=== PATIENT | female | born 1995 | race African-American/Black ===

== ENCOUNTER 2017-02-24 03:46 | Inpatient (IN) | payer OTHER ==
[~2017-02-24] VITALS: Ht 157.5 cm; Wt 78.9 kg
--- NOTE | 2017-02-24 03:49 | NUR ---
BIBA TO ER BED 6
--- NOTE | 2017-02-24 03:50 | NUR ---
21Y F BIBA C/O N/V/D X 3 DAYS. SKIN IS PINK/WARM/DRY; AAOX4; LUNGS CLEAR BL; HR EVEN AND REGULAR; PT DENIES ANY FEVER, CP, SOB, OR COUGH AT THIS TIME; PATIENT STATES PAIN OF 8/10 AT THIS TIME; VSS; PATIENT POSITIONED FOR COMFORT; HOB ELEVATED; BEDRAILS UP X2; BED DOWN. ER MD MADE AWARE OF PT STATUS.IV WAS ESTABLISHED ON THE FIELD BY EMS 20 LEFT HAND. PT DENIES ANY MEDICAL HX AND NKA
[2017-02-24 03:55] VITALS: BP 112/67
[2017-02-24] MEDS ORDERED: ONDANSETRON 4 MG/2 ML VIAL ONE (04:01)
[2017-02-24] MEDS ORDERED: KETOROLAC 30 MG/ML VIAL ONE (04:02)
[2017-02-24] MEDS ORDERED: AMOX500C25 PO (04:05)
--- NOTE | 2017-02-24 04:05 | NUR ---
IVF/IVP MEDS GIVEN-NADR AT THIS TIME.
[2017-02-24] MEDS ORDERED: NACL 0.9% 1,000 ML IV ONE ×2 (05:40→05:50)
[2017-02-24] MEDS ORDERED: ONDANSETRON 4 MG/2 ML VIAL IVP ONE ×2 (05:40→05:50)
[2017-02-24] MEDS ORDERED: KETOROLAC 30 MG/ML VIAL IVP ONE (05:40)
[2017-02-24] MEDS ORDERED: MORPHINE SULFATE 4 MG/ML SYR IVP ONE ×2 (05:50→07:35)
--- NOTE | 2017-02-24 06:20 | NUR ---
FIRST IV D/C WHILE PT WAS AT CT
[2017-02-24 06:43] LABS: BASOPHILS # (AUTO) 0.1 K/uL (0.00-0.22); BASOPHILS % (AUTO) 0.3 % (0.0-2.0); EOSINOPHILS # (AUTO) 0.4 K/uL (0-0.4); HEMATOCRIT 38.1 % (36-48); HEMOGLOBIN 12.1 g/dL (12.0-16.0); LYMPHOCYTES # (AUTO) 0.5 K/uL (2.5-16.5); LYMPHOCYTES % (AUTO) 2.8 % (20.5-51.1); MEAN CORPUSCULAR HEMOGLOBIN 23 pg (27-31); MEAN CORPUSCULAR HGB CONC 32 g/dL (33-37); MEAN CORPUSCULAR VOLUME 71 fL (80-94); MONOCYTES # (AUTO) 0.5 K/uL (0.8-1.0); MONOCYTES % (AUTO) 2.7 % (1.7-9.3); NEUTROPHILS # (AUTO) 17.4 K/uL (1.8-7.7); NEUTROPHILS % (AUTO) 92.2 % (42.2-75.2); PLATELET COUNT (AUTO) 179 K/uL (140-450); RED BLOOD CELL COUNT(AUTO) 5.39 MIL/uL (4.20-5.40); RED CELL DISTRIBUTION WIDTH 16.8 % (11.6-13.7); WHITE BLOOD COUNT (AUTO) 18.9 K/uL (4.8-10.8)
[2017-02-24 06:52] LABS: ANION GAP 20.9 (8-16); CALCIUM 8.7 mg/dL (8.5-10.1); CARBON DIOXIDE 19.2 mmol/L (21-32); POTASSIUM 3.1 mmol/L (3.5-5.1)
[2017-02-24 06:57] LABS: ALBUMIN 3.5 g/dL (3.4-5.0); TOTAL BILIRUBIN 0.7 mg/dL (0.0-1.0); TOTAL PROTEIN, SERUM 7.8 g/dL (6.4-8.2)
--- NOTE | 2017-02-24 07:15 | NUR ---
Pt report given to BERNADETTE . Transfer of care at this time.
--- NOTE | 2017-02-24 07:22 | NUR ---
Patient found lying in bed on right side, calm and relaxed, no signs of distress. VSS. Pt expresses feeling better than when she came in. Patient c/o 4/10 abdominal pain. Pt is requesting more pain medication at this time. Dr. Davis made aware. All other needs met.
[2017-02-24] MEDS ORDERED: ONDANSETRON 4 MG/2 ML VIAL IVP PRN (07:30)
[2017-02-24] MEDS ORDERED: MORPHINE SULFATE 4 MG/ML SYR IVP PRN (07:30)
[2017-02-24] MEDS ORDERED: ACETAMINOPHEN 325 MG TAB PO PRN (07:30)
[2017-02-24] MEDS ORDERED: MORPHINE SULFATE 2 MG/ML SYR IVP PRN (07:30)
--- NOTE | 2017-02-24 08:30 | NUR ---
Patient will be admitted to care of Dr. Mcgregor. Admited to Med/Surg. Will go to room 125-B. Belongings list completed. Report to Dahlia TURNER.
--- NOTE | 2017-02-24 08:40 | NUR ---
PT ARRIVED ON UNIT WITH 1 ER NURSE IN A WHEELCHAIR. PT AMBULATED TO THE BATHROOM AND TO THE BED. PT IS ALERT AND ORIENTED. I INTRODUCED MYSELF AND UPDATED THE BOARD. ORIENTED PT TO THE CALL LIGHT. PT C/O NAUSEA. NO VOMITING SINCE SHE'S BEEN IN THE ER. C/O OF ABDOMINAL DISCOMFORT. V/S WITHIN NORMAL LIMITS. MRSA SCREENING DONE. PT ASKED FOR SOME ICE CHIPS. BROUGHT HER A CUP OF ICE. WILL CHECK ORDERS. WILL CONTINUE TO MONITOR PT.
[2017-02-24 09:00] VITALS: BP 111/71
[2017-02-24] MEDS: NACL 0.9% 1,000 ML IV SCH ×3 (09:44→20:35)
[2017-02-24] MEDS: ENOXAPARIN 40 MG/0.4 ML SYR SUBQ SCH (09:46)
--- NOTE | 2017-02-24 09:50 | NUR ---
ADMINISTERED MORNING MEDS. ADMINISTERED ROCEPHIN AND HUNG A NEW BAG OF SALINE. PT TOLERATED WELL.
--- NOTE | 2017-02-24 10:30 | NUR ---
PT SLEEPING. NO SIGNS OF DISTRESS. WILL CONTINUE TO MONITOR PT.
--- NOTE | 2017-02-24 12:23 | NUR ---
PT JUST GOT UP AND WENT TO THE BATHROOM. FORGOT TO GIVE ME A SAMPLE. WILL NEXT TIME. LUNCH IS HERE. WILL TRY SOME CLEAR LIQ DIET.
--- NOTE | 2017-02-24 14:04 | NUR ---
PT RESTING COMFORTABLY. NO SIGNS OF DISTRESS NOTED. WILL CONTINUE TO MONITOR PT.
--- NOTE | 2017-02-24 14:54 | NUR ---
PT SLEEPING SOUNDLY. WILL CONTINUE TO MONITOR PT.
[2017-02-24 16:00] VITALS: BP 118/74
[2017-02-24 17:04] LABS: APPEARANCE,URINE CLEAR (CLEAR); BILIRUBIN,URINE NEGATIVE (NEGATIVE); BLOOD, URINE NEGATIVE (NEGATIVE); COLOR,URINE YELLOW (YELLOW); LEUKOCYTE ESTERASE ,URINE NEGATIVE (NEGATIVE); NITRITE, URINE NEGATIVE (NEGATIVE); PROTEIN,URINE NEGATIVE (NEGATIVE); UGLUCOSE NEGATIVE (NEGATIVE); UROBILINOGEN,URINE 0.2 EU/dL (0.2 - 1)
[2017-02-24] MEDS ORDERED: POTASSIUM CHLORIDE 10 MEQ TABER PO SCH (17:20)
--- NOTE | 2017-02-24 17:20 | NUR ---
PT C/O OF LENNON AND SOME NAUSEA. ADMINISTERED PAIN MED AND NAUSEA MED. GAVE HER K-DUR 4 TAB. TOLD HER TO TAKE IT WHEN SHE FEELS LESS NAUSEATED. PT TOLERATED WELL. WILL CONTINUE TO MONITOR PT.
[2017-02-24 17:36] LABS: AMPHETAMINE, URINE NEG. ng/ml (NEG <=1000); BARBITURATE, URINE NEG. ng/ml (NEG <=200); BENZODIAZEPINE, URINE NEG. ng/mL (NEG <=200); CANNABINOID, URINE POS. ng/mL (NEG <=50); COCAINE, URINE NEG. ng/mL (NEG <=300); OPIATE, URINE POS. ng/mL (NEG <=2000); PHENCYCLIDINE SCREEN,URINE NEG. ng/mL (NEG <=25)
[2017-02-24 17:43] LABS: BACTERIA,URINE RARE /HPF (None Seen); RBC,URINE 0-3 /HPF (0-5); WBC,URINE 0-3 /HPF (0-5)
--- NOTE | 2017-02-24 18:33 | NUR ---
PT RESTING. HAD SOME DINNER. TOLERATING WELL. NO COMPLAINTS AT THIS TIME. WILL CONTINUE TO MONITOR.
--- NOTE | 2017-02-24 19:25 | NUR ---
ENDORSED PT TO THE REGULATORY PRODUCT MANAGER NURSE AT [facility] FOR CONTINUITY OF CARE. PT IS RESTING COMFORTABLY. PT IN STABLE CONDITION. PER PT, NAUSEA IS BETTER BUT PAIN IS STILL AT A 6/10.
--- NOTE | 2017-02-24 19:26 | NUR ---
RECEIVED PT FROM [facility] MAY AAOX4 AMBULATORYIV ON LEFT AC INFUSING WELL DENIES ANY PAIN AT THIS TIME PAIN MEDIC WAS GIVEN ON ADMISSION, COMPLAIN FOR NAUSEAS AND MEDIC WAS GIVEN WILL BE MONITOING INITIAL ASSESSMENT DONE
[2017-02-24 20:00] VITALS: BP 114/66
[2017-02-24] MEDS: FAMOTIDINE 20 MG TAB PO SCH (22:02)
--- NOTE | 2017-02-24 23:00 | NUR ---
PT VOIDING WELL AMBULATORY, PEPCID GIVEN ORDER NOT DISTRESS NOTED AT THIS TIME
[2017-02-25] VITALS: BP 93/49
--- NOTE | 2017-02-25 03:02 | NUR ---
PT HAS A BM PASTE CONSISTENCY
--- NOTE | 2017-02-25 05:41 | NUR ---
PT SLEEPING NOT DISTRESS NOTED IV ON LEFT AC INFUSING WELL
[2017-02-25] MEDS: NACL 0.9% 1,000 ML IV SCH (05:49)
--- NOTE | 2017-02-25 05:53 | NUR ---
PT HAS ANOTHER BM SMALL AMOUNT PASTE CONSISTENCY, NOT FEVER, DENIES ANY PAIN
--- NOTE | 2017-02-25 06:11 | NUR ---
PT DENIES ANY PAIN , AND THE BM IS PASTE CONSISTENCY BROWN COLOR
[2017-02-25 06:45] LABS: BASOPHILS # (AUTO) 0.1 K/uL (0.00-0.22); BASOPHILS % (AUTO) 0.9 % (0.0-2.0); EOSINOPHILS # (AUTO) 0.2 K/uL (0-0.4); EOSINOPHILS % (AUTO) 1.8 % (0.0-4.0); HEMATOCRIT 34.2 % (36-48); HEMOGLOBIN 10.8 g/dL (12.0-16.0); LYMPHOCYTES # (AUTO) 1.4 K/uL (2.5-16.5); LYMPHOCYTES % (AUTO) 13.7 % (20.5-51.1); MEAN CORPUSCULAR HEMOGLOBIN 22 pg (27-31); MEAN CORPUSCULAR HGB CONC 32 g/dL (33-37); MEAN CORPUSCULAR VOLUME 71 fL (80-94); MONOCYTES # (AUTO) 0.9 K/uL (0.8-1.0); MONOCYTES % (AUTO) 9.1 % (1.7-9.3); NEUTROPHILS # (AUTO) 7.4 K/uL (1.8-7.7); NEUTROPHILS % (AUTO) 74.5 % (42.2-75.2); PLATELET COUNT (AUTO) 142 K/uL (140-450); RED BLOOD CELL COUNT(AUTO) 4.81 MIL/uL (4.20-5.40); RED CELL DISTRIBUTION WIDTH 16.8 % (11.6-13.7)
--- NOTE | 2017-02-25 07:00 | NUR ---
RECEIVED REPORT AT PT BEDSIDE. PT RESTING IN BED. DENIES DISCOMFORT AT THIS TIME. IV SITE PATENT AND INTACT. AAOX4. AMBULATORY. CALL LIGHT WITHIN REACH. BED IN LOWEST POSITION SIDE RAILS UP. DENIES N/V WITH AID OF MEDICATIONS.
[2017-02-25 08:00] VITALS: BP 102/60
[2017-02-25 08:42] LABS: ANION GAP 12.4 (8-16); CARBON DIOXIDE 23.5 mmol/L (21-32); POTASSIUM 2.9 mmol/L (3.5-5.1)
[2017-02-25 08:45] LABS: CREATININE 0.8 mg/dL (0.6-1.3); TOTAL BILIRUBIN 0.4 mg/dL (0.0-1.0)
[2017-02-25 08:46] LABS: ALBUMIN 2.7 g/dL (3.4-5.0); TOTAL PROTEIN, SERUM 6.1 g/dL (6.4-8.2)
--- NOTE | 2017-02-25 08:50 | NUR ---
DR. GATES PAGED REGARDING CRITICAL LAB, AWAITING CALLBACK.
--- NOTE | 2017-02-25 09:07 | NUR ---
PATIENT HAS BEEN SCREENED AND CATEGORIZED HIGH NUTRITION RISK. PATIENT WILL BE SEEN WITHIN 1-2 DAYS OF ADMISSION. 02/24/17-02/25/[address]
--- NOTE | 2017-02-25 09:20 | NUR ---
SPOKE WITH DR. GATES. NOTIFIED OF DECREASED K+ AND PATIENT STATUS. NEW ORDERS RECEIVED.
--- NOTE | 2017-02-25 09:47 | NUR ---
CM NOTE INITIAL REVIEW SENT TO [facility] FAX# [phone] MARLEN BARRIENTOS PH# [phone]
[2017-02-25] MEDS: FAMOTIDINE 20 MG TAB PO SCH (09:55)
[2017-02-25] MEDS ORDERED: POTASSIUM CHLORIDE 10 MEQ TABER PO SCH (10:00)
[2017-02-25] MEDS: ENOXAPARIN 40 MG/0.4 ML SYR SUBQ SCH (10:04)
--- NOTE | 2017-02-25 10:30 | NUR ---
PT ASSISTED TO SHOWER. AMBULATORY. NO S/S OF ACUTE DISTRESS.
--- NOTE | 2017-02-25 13:00 | NUR ---
PT SEEN BY DR. GATES. PT TO BE D/C HOME IF CLEARED OF C. DIFF. PT AWARE OF PLAN OF CARE. NO S/S OF ACUTE DISTRESS.
--- NOTE | 2017-02-25 13:53 | NUR ---
02/25/17 RD INITIAL ASSESSMENT COMPLETED PLEASE REFER TO NUTRITION ASSESSMENT UNDER CARE ACTIVITY FOR ESTIMATED NUTRITIONAL NEEDS. RD RECOMMENDATIONS: 1. CONTINUE ON CLEAR LIQUID DIET TOLERATED. 2. WHEN MEDICALLY APPROPRIATE ADVANCE DIET TO REGULAR. 3. RD WILL F/U 3-5 DAYS; MODERATE RISK. AIDA DIEGO RD
[2017-02-25 16:00] VITALS: BP 131/83
--- NOTE | 2017-02-25 17:50 | NUR ---
DR. GATES NOTIFIED PER NELL CABRAL RN OF NEGATIVE C. DIFF CULTURE. PATIENT TO BE DISCHARGED HOME.
--- NOTE | 2017-02-25 18:00 | NUR ---
PT DISCHARGE INSTRUCTIONS GIVEN. PT VERBALIZED UNDERSTANDING WITH DISCHARGE FOLLOW UP WITH PCP. PT AAOX4. AMBULATORY. FRIEND AT BEDSIDE TO TAKE PATIENT HOME. PT DENIES DISCOMFORT. IV REMOVED WITH CANULA INTACT. ID BAND REMOVED. PT WALKED TO FRONT LOBBY.
== END 2017-02-25 18:00 | disposition home or self-care (01) | DRG 249 ==
LOC: MED 03:46 → MMU 07:34
PROVIDERS: ADMIT Hospitalist; ATTEND Hospitalist
DX: R11.2 Nausea with vomiting, unspecified (principal); E87.6 Hypokalemia; D72.829 Elevated white blood cell count, unspecified; F12.10 Cannabis abuse, uncomplicated; F43.9 Reaction to severe stress, unspecified; J03.90 Acute tonsillitis, unspecified; R19.7 Diarrhea, unspecified; Z71.51 Drug abuse counseling and surveillance of drug abuser; Y92.89 Other specified places as the place of occurrence of the external cause
CPT/HCPCS: 36415; 80053; 80305; 81001; 81025; 82150; 83690; 84703; 85025; 87070; 87081; 87086; 96361; 96374; 96375; 96376; 99285; J0696; J1650; J1885; J2270; J2405; J7030; J7060